=== PATIENT | female | born 1955 | race Caucasian/White ===

== ENCOUNTER 2017-03-06 12:55 | Emergency (ER) | payer BC ==
[2017-03-06] MEDS ORDERED: Ketorolac 60 MG/2 ML SDV IM ONE (13:10)
--- NOTE | 2017-03-06 13:28 | EDM.PDOC ---
ED HPI GENERAL MEDICAL PROBLEM - General Chief Complaint: Lower Extremity Injury/Pain Stated Complaint: horse stepped on foot Time Seen by Provider: 03/06/17 13:15 Source of Information: Reports: Patient History Limitations: Reports: No Limitations - History of Present Illness INITIAL COMMENTS - FREE TEXT/NARRATIVE: 62 YO WF presents to ER with left foot pain, swelling and bruising after getting stepped on by her horse. Pt denies any other injury. 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 Left Feet Pain Score (Numeric/FACES): 9 - Related Data Allergies Allergy/AdvReac Type Severity Reaction Status Date / Time No Known Drug Allergies Allergy Other Verified 03/06/17 13:29 Home Meds: Home Meds Cholecalciferol (Vitamin D3) [Vitamin D] 1,000 unit PO DAILY 07/20/14 [History] FLUoxetine HCl [Fluoxetine HCl] 40 mg PO DAILY 07/20/14 [History] LORazepam [Ativan] 1 mg PO BEDTIME 07/20/14 [History] Hydrocodone/Acetaminophen [Hydrocodon-Acetaminophen 5-325] 1 each PO Q6HR PRN # 15 tablet 03/06/17 [Rx] Hydrocodone/Acetaminophen [Hydrocodon-Acetaminophen 5-325] 1 tab PO Q4HR [History] Ibuprofen [Motrin] 600 mg PO Q8H #15 tablet 03/06/17 [Rx] Social & Family History - Tobacco Use Smoking Status *Q: Never Smoker Second Hand Smoke Exposure: No - Alcohol Use Days Per Week of Alcohol Use: 0 - Recreational Drug Use Recreational Drug Use: No Review of Systems - Review of Systems Review Of Systems: See Below Constitutional: Reports: No Symptoms Eyes: Reports: No Symptoms Ears: Reports: No Symptoms Nose: Reports: No Symptoms Mouth/Throat: Reports: No Symptoms Respiratory: Reports: No Symptoms Cardiovascular: Reports: No Symptoms GI/Abdominal: Reports: No Symptoms Genitourinary: Reports: No Symptoms Musculoskeletal: Reports: Foot Pain Skin: Reports: No Symptoms Neurological: Reports: No Symptoms Psychiatric: Reports: No Symptoms ED EXAM, GENERAL - Physical Exam Exam: See Below Exam Limited By: No Limitations General Appearance: Alert, WD/WN, No Apparent Distress Nose: Normal Inspection, Normal Mucosa, No Blood Neck: Normal Inspection, Supple, Non-Tender, Full Range of Motion Respiratory/Chest: No Respiratory Distress, Lungs Clear, Normal Breath Sounds, No Accessory Muscle Use, Chest Non-Tender Cardiovascular: Normal Peripheral Pulses, Regular Rate, Rhythm, No Edema, No Gallop, No JVD, No Murmur, No Rub GI/Abdominal: Normal Bowel Sounds, Soft, Non-Tender, No Organomegaly, No Distention, No Abnormal Bruit, No Mass Back Exam: Normal Inspection, Full Range of Motion, NT Extremities: Other (left foot swelling with echymosis ) Neurological: Alert, Oriented, CN II-XII Intact, Normal Cognition, Normal Gait, Normal Reflexes, No Motor/Sensory Deficits Psychiatric: Normal Affect, Normal Mood Skin Exam: Warm, Dry, Intact, Normal Color, No Rash Course - Orders/Labs/Meds Orders: Active Orders 24 hr Category Date Time Status Foot Comp Min 3V Lt [CR] Stat Exams 03/06/17 13:09 Taken Meds: Medications Discontinued Medications Generic Name Dose Route Start Last Admin Trade Name Freq PRN Reason Stop Dose Admin Ketorolac Tromethamine 60 mg 03/06/17 13:10 03/06/17 13:21 Toradol IM 03/06/17 13:11 60 mg ONETIME ONE Administration - Radiology Interpretation Free Text/Narrative:: left foot xray- proximal 1st phalanges fracture left ankle- avulsion fracture to distal left fibula Departure - Departure Time of Disposition: 13:45 Disposition: Home, Self-Care 01 Condition: good Clinical Impression: Fracture of foot, Fracture of fibula Fracture of great toe Qualifiers: Encounter type: initial encounter Fracture type: closed Phalanx: proximal Fracture alignment: displaced Laterality: left Qualified Code(s): S92.412A - Displaced fracture of proximal phalanx of left great toe, initial encounter for closed fracture Fibula fracture Qualifiers: Encounter type: initial encounter Fibula location: distal Fracture type: closed Fracture morphology: other fracture Laterality: left Qualified Code(s): S82.832A - Other fracture of upper and lower end of left fibula, initial encounter for closed fracture - Discharge Information Prescriptions: Hydrocodone/Acetaminophen [Hydrocodon-Acetaminophen 5-325] 1 each PO Q6HR PRN # 15 tablet PRN Reason: Pain Ibuprofen [Motrin] 600 mg PO Q8H #15 tablet Instructions: Crutch Use, [id number], Fibular Ankle Fracture Treated With or Without Immobilization, Adult, Toe Fracture Forms: ED Department Discharge - My Orders Last 24 Hours: My Active Orders 03/06/17 13:09 Foot Comp Min 3V Lt [CR] Stat - Assessment/Plan Last 24 Hours: My Active Orders 03/06/17 13:09 Foot Comp Min 3V Lt [CR] Stat Assessment:: 1. proximal great toe fracture on left 2. avulsion fracture to left distal fibula Plan: 1. cruches/ice/elevation/compression 2. fracture shoe to left foot/shira tape toe/laura wrap for compression 3. follow up with ortho- Dr Gaitan for further evaluation and meanagement 4. hydocodone 5/325 Q4-6 #15 PRN /motrin 600mg PO Q6-8 x 5 days for pain
[2017-03-06 15:00] VITALS: BP 141/73
== END 2017-03-06 14:30 | disposition home or self-care (01) ==
LOC: KA.ED 12:55
DX: S92.412A Displaced fracture of proximal phalanx of left great toe, initial encounter for closed fracture (principal); S82.832A Other fracture of upper and lower end of left fibula, initial encounter for closed fracture; Z79.899 Other long term (current) drug therapy; X58.XXXA Exposure to other specified factors, initial encounter
CPT/HCPCS: 73610; 73630; 96372; 99283; J1885

== ENCOUNTER 2021-07-08 12:32 | Emergency (ER) | payer MEDICARE, OTHER ==
[2021-07-08 12:48] VITALS: BP 133/93; PULSE 73
--- NOTE | 2021-07-08 13:11 | EDM.PDOC ---
ED HPI GENERAL MEDICAL PROBLEM - General Stated Complaint: LEFT HIP PAIN Time Seen by Provider: 07/08/21 12:45 Source of Information: Reports: Patient History Limitations: Reports: No Limitations - History of Present Illness INITIAL COMMENTS - FREE TEXT/NARRATIVE: Patient presents with left low back pain after lifting her when he fell backward into the bathtub after urinating. She felt the sharp pain while lifting and it as continued for about 3 hours now. 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 She takes hydrocodone for chronic pain and is weaning that down; also got SI joint injections last week from Cecy Caballero. No pain along spine. - Related Data Allergies Allergy/AdvReac Type Severity Reaction Status Date / Time pantoprazole [From Protonix] Allergy Lightheaded Verified 07/08/21 12:49 ness Home Meds: Home Meds FLUoxetine HCl [Fluoxetine HCl] 40 mg PO DAILY 07/20/14 [History] LORazepam [Ativan] 1 mg PO BEDTIME PRN 07/20/14 [History] Hydrocodone/Acetaminophen [Hydrocodon-Acetaminophen 5-325] 1 each PO Q6HR PRN #15 tablet 03/06/17 [Rx] Cyclobenzaprine [Flexeril] 10 mg PO TID PRN 03/02/21 [History] Diclofenac Sodium [Voltaren 1% Gel] 1 applic TOP BID PRN 03/02/21 [History] EPINEPHrine [Epipen] 0.3 mg IM ASDIRECTED PRN 03/02/21 [History] Nystatin/Triamcinolone Crm [Mycolog Crm] 15 gm .XX BID PRN 03/02/21 [History] Ibuprofen [Motrin] 600 mg PO Q8H PRN 06/29/21 [History] Past Medical History Musculoskeletal History: Reports: Back Pain, Chronic - Past Surgical History Musculoskeletal Surgical History: Reports: Other (See Below) Other Musculoskeletal Surgeries/Procedures:: Right big toe fused. L foot fracture ED ROS GENERAL - Review of Systems Review Of Systems: See Below Constitutional: Denies: Fever, Chills, Malaise, Weakness HEENT: Denies: Ear Pain, Vision Change Respiratory: Denies: Shortness of Breath, Cough Cardiovascular: Denies: Chest Pain, Lightheadedness, Syncope GI/Abdominal: Denies: Abdominal Pain, Vomiting Musculoskeletal: Reports: Back Pain. Denies: Neck Pain, Shoulder Pain, Arm Pain, Leg Pain Skin: Denies: Cyanosis, Jaundice, Mottled, Pallor, Diaphoresis Neurological: Denies: Confusion, Dizziness, Headache, Numbness, Seizure, Syncope, Trouble Speaking, Difficulty Walking Psychiatric: Denies: Agitation, Anxiety, Confusion ED EXAM,LOWER BACK PAIN/INJURY - Physical Exam Exam: See Below Exam Limited By: No Limitations General Appearance: Alert, WD/WN, No Apparent Distress Eye Exam: Bilateral Eye: EOMI, Normal Inspection, PERRL Ears: Normal External Exam, Hearing Grossly Normal Nose: Normal Inspection, No Blood Throat/Mouth: Normal Inspection, Normal Lips, Normal Voice, No Airway Compromise Head: Atraumatic, Normocephalic Neck: Normal Inspection, Supple, Non-Tender, Full Range of Motion Respiratory/Chest: No Respiratory Distress, Lungs Clear, Normal Breath Sounds, No Accessory Muscle Use Cardiovascular: Regular Rate, Rhythm, No Murmur Back Exam: Full Range of Motion, Muscle Spasm (left low back in SI region there is a palpable muscle spasm that is tender to palpation). No: Vertebral Tenderness Extremities: Normal Inspection, Normal Range of Motion, Non-Tender Neurological: Alert, Normal Mood/Affect, Normal Dorsiflexion, Normal Plantar Flexion, No Motor/Sensory Deficits, Oriented x 3 Psychiatric: Normal Affect, Normal Mood Skin Exam: Warm, Dry, Intact, Normal Color, No Rash Course - Vital Signs Last Recorded V/S: Last Vital Signs Temp 97.7 F 07/08/21 12:35 Pulse 73 07/08/21 12:35 Resp 18 07/08/21 12:35 BP 133/93 H 07/08/21 12:35 Pulse Ox 99 07/08/21 12:35 - Re-Assessments/Exams Free Text/Narrative Re-Assessment/Exam: 07/08/21 13:13 Discussed findings, expectations and recommendations. Demonstrated hamstring stretch to possibly help prevent low back pain recurrently. Discharged to home in stable condition. Departure - Departure Time of Disposition: 13:04 Disposition: Home, Self-Care 01 Condition: Good Clinical Impression: Back muscle spasm - Discharge Information Instructions: Muscle Cramps and Spasms, [id number] Referrals: Isaura Rucker MD [Primary Care Provider] - Additional Instructions: Drink 8 cups of water daily. Do the stretches we discussed when you are able. Take Ibuprofen 400 mg every 8 hours as needed for pain. Take Flexeril as directed for muscle spasm. Follow up with your PCP if not improving in 3-5 days. If worsening, recheck with PCP or ER as needed. Sepsis Event Note (ED) - Evaluation Sepsis Screening Result: No Definite Risk - Focused Exam Vital Signs: Vital Signs Temp Pulse Resp BP Pulse Ox 07/08/21 12:35 97.7 F 73 18 133/93 H 99
== END 2021-07-08 13:15 | disposition home or self-care (01) ==
LOC: KA.ED 12:32
DX: M62.830 Muscle spasm of back (principal); Z88.8 Allergy status to other drugs, medicaments and biological substances; X50.0XXA Overexertion from strenuous movement or load, initial encounter
CPT/HCPCS: 99283

== ENCOUNTER 2022-09-13 12:40 | Emergency (ER) | payer MEDICARE, OTHER ==
[2022-09-13 13:11] LABS: ANION GAP 11.5 mmol/L (5-15)
[2022-09-13 13:13] VITALS: BP 153/77; PULSE 77
[2022-09-13 13:41] LABS: RESPIRATORY SYNCYTIAL VIR NAA NEGATIVE (NEGATIVE)
[2022-09-13 13:44] LABS: CORONAVIRUS COVID-19 NAA NEGATIVE (NEGATIVE)
== END 2022-09-13 14:10 | disposition home or self-care (01) ==
LOC: KA.ED 12:40
DX: J10.1 Influenza due to other identified influenza virus with other respiratory manifestations (principal); Z88.8 Allergy status to other drugs, medicaments and biological substances; Z20.822 Contact with and (suspected) exposure to COVID-19
CPT/HCPCS: 0241U; 36415; 71045; 80053; 83605; 85025; 93005; 93010; 99284